=== PATIENT | female | born 1965 | race Caucasian/White ===

== ENCOUNTER → 2017-09-12 08:52 | Outpatient (POV) | payer OTHER, SELFPAY | PROVIDERS: PCP Family Medicine; Visit Provider Podiatrist | DX: Z00.00 Encounter for general adult medical examination without abnormal findings (principal) ==

== ENCOUNTER → 2017-10-10 08:57 | Outpatient (POV) | payer OTHER, SELFPAY | PROVIDERS: Visit Provider Podiatrist | DX: Z00.00 Encounter for general adult medical examination without abnormal findings (principal) ==

== ENCOUNTER → 2017-11-07 08:55 | Outpatient (POV) | payer OTHER, SELFPAY | PROVIDERS: Family Provider Family Medicine; PCP Family Medicine; Visit Provider Podiatrist | DX: Z00.00 Encounter for general adult medical examination without abnormal findings (principal) ==

== ENCOUNTER → 2017-11-25 09:04 | Outpatient (CLI) | payer OTHER, SELFPAY ==
--- NOTE | 2017-11-25 09:04 | XR_ITS ---
Left foot Weightbearing Foot 3 Views HISTORY: Foot pain ORDERING PHYSICIAN: Selina Olvera DPM PATIENT AGE: 52 years COMPARISON: None FINDINGS: There is mild hallux valgus with first metatarsophalangeal angle of 30 degrees with mild hypertrophic change of the distal aspect of the first metatarsal. No fracture or dislocation. No lytic or blastic change. IMPRESSION: Hallux valgus with bunion formation
--- NOTE | 2017-11-25 09:04 | XR_ITS ---
Right foot Weightbearing Foot 3 Views HISTORY: Foot pain ORDERING PHYSICIAN: Selina Olvera DPM PATIENT AGE: 52 years FINDINGS: There is mild hallux valgus with first metatarsophalangeal angle of 24 degrees. Mild osteoarthritic changes are present at the first metatarsophalangeal joint. No fracture or dislocation. Osteoarthritic changes are slightly worse then when compared to 03/29/2017 mild soft tissue swelling is present at the distal aspect of the first metatarsal along with mild bony hypertrophic changes. No fracture or other significant anomalies. 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
--- NOTE | 2017-11-25 09:04 | XR_ITS ---
XR ankle wt bearing RT min 3V CLINICAL INDICATION: Right ankle pain ORDERING PHYSICIAN: Selina Olvera DPM PATIENT AGE: 52 years COMPARISON: None FINDINGS: Weightbearing views are performed. No fracture or dislocation. No bony or joint abnormality. IMPRESSION: Negative right ankle
--- NOTE | 2017-11-25 09:04 | XR_ITS ---
XR ankle wt bearing LT min 3V HISTORY: Ankle pain ORDERING PHYSICIAN: Selina Olvera DPM PATIENT AGE: 52 years COMPARISON: None FINDINGS: There is a separate bony density at the tip of the medial malleolus consistent with an avulsion fracture which may be old. Please correlate clinically. No other significant anomalies are evident. The ankle mortise is well preserved and the talar dome has an unremarkable appearance. No soft tissue swelling IMPRESSION: Avulsion fracture of the tip of the medial malleolus with minimal lateral displacement age indeterminate otherwise negative
== END ==
PROVIDERS: Visit Provider Podiatrist
DX: M79.671 Pain in right foot (principal); M79.672 Pain in left foot; M79.673 Pain in unspecified foot
CPT/HCPCS: 73610; 73630

== ENCOUNTER → 2017-11-28 09:15 | Outpatient (POV) | payer OTHER, SELFPAY | PROVIDERS: Family Provider Family Medicine; PCP Family Medicine; Visit Provider Podiatrist | DX: Z00.00 Encounter for general adult medical examination without abnormal findings (principal) ==

== ENCOUNTER → 2017-12-12 10:16 | Outpatient (POV) | payer OTHER, SELFPAY | PROVIDERS: Visit Provider Podiatrist | DX: Z00.00 Encounter for general adult medical examination without abnormal findings (principal) ==

== ENCOUNTER → 2017-12-24 11:12 | Outpatient (CLI) | payer OTHER, SELFPAY ==
--- NOTE | 2017-12-24 11:20 | XR_ITS ---
XR knee LT 3V HISTORY: ITS.REASON: BILAT KNEE PAIN ORDERING PHYSICIAN: TIARA Mcmillan PATIENT AGE: 52 years COMPARISON: 01/21/2011 FINDINGS: There are minimal osteoarthritic changes with slight decrease in joint space medially and small osteophytes at the posterior patella and at the interspinous region of the proximal tibia. There is some minimal lateral subluxation of the tibia. No fracture or dislocation. No lytic or blastic change. IMPRESSION: Minimal osteoarthritic change of the left knee
--- NOTE | 2017-12-24 11:20 | XR_ITS ---
XR knee RT 3V HISTORY: ITS.REASON: BILAT KNEE PAIN ORDERING PHYSICIAN: TIARA Mcmillan PATIENT AGE: 52 years COMPARISON: FINDINGS: No fracture or dislocation. No lytic or blastic change. Normal mineralization. No significant arthritic changes evident. No other significant findings IMPRESSION: Negative right Knee
== END ==
PROVIDERS: PCP Family Medicine; Visit Provider Physician Assistant
DX: M25.561 Pain in right knee (principal); M25.562 Pain in left knee
CPT/HCPCS: 73562

== ENCOUNTER → 2018-02-06 10:00 | Outpatient (POV) | payer OTHER, SELFPAY | PROVIDERS: Visit Provider Podiatrist | DX: Z00.00 Encounter for general adult medical examination without abnormal findings (principal) ==

== ENCOUNTER → 2018-02-13 09:30 | Outpatient (CLI) | payer OTHER, SELFPAY ==
[2018-02-13 10:59] LABS: Alanine Aminotransferase 22 U/L (12-78); Albumin Level 3.5 gm/dL (3.4-5.0); Alkaline Phosphatase 101 U/L (46-116); Anion Gap 13.5 mEq/L (5-15); Aspartate Amino Transferase 17 U/L (15-37); Bilirubin,Total 0.4 mg/dL (0.2-1.0); Blood Urea Nitrogen 13 mg/dL (7-18); Calcium 8.5 mg/dL (8.5-10.1); Carbon Dioxide 25 mmol/L (21.0-32.0); Chloride 106 mmol/L (98-107); Chol/HDL Ratio 4.9 (1-3.5); Cholesterol 194 mg/dL (140-200); Creatinine,Serum 0.65 mg/dL (0.55-1.02); Estimated Glomerular Filt Rate 96 ml/min (>60); Free T4 (Free Thyroxine) 0.87 ng/dl (0.76-1.46); GFR (African American) 116 ML/MIN (>60); Globulin 3.4 gm/dl (1.3-3.2); Glucose 96 mg/dL (74-106); HDL Cholesterol 40 mg/dL (29-89); LDL Cholesterol 120 mg/dL (0-130); Potassium 4.5 mmoL/L (3.5-5.1); Sodium 140 mmol/L (136-145); Thyroid Stimulating Hormone 2.26 uIU/ml (0.358-3.740); Total Protein,Serum 6.9 gm/dL (6.4-8.2); Triglycerides 172 mg/dL (30-200); VLDL Cholesterol 34 mg/dL (0-40)
== END ==
PROVIDERS: Visit Provider Physician Assistant
DX: E03.9 Hypothyroidism, unspecified (principal); E78.2 Mixed hyperlipidemia
CPT/HCPCS: 36415; 80053; 80061; 84439; 84443

== ENCOUNTER → 2018-10-12 13:24 | Outpatient (POV) | payer OTHER, SELFPAY | PROVIDERS: Visit Provider Specialist | DX: M79.672 Pain in left foot (principal); M79.671 Pain in right foot | CPT/HCPCS: 95886; 95909 ==

== ENCOUNTER → 2018-10-28 14:29 | Outpatient (CLI) | payer OTHER, SELFPAY ==
--- NOTE | 2018-10-28 14:56 | XR_ITS ---
XR chest 2V HISTORY: ITS.REASON: SOB ORDERING PHYSICIAN: Alma Baker PATIENT AGE: 53 years COMPARISON: 17 FINDINGS: The cardiomediastinal silhouette and pulmonary vascularity are within normal limits. The lungs are clear without infiltrates, suspicious nodules, or pleural effusions. No acute bony abnormalities. IMPRESSION: Negative chest, no acute finding
== END ==
PROVIDERS: PCP Nurse Practitioner Family; Visit Provider Nurse Practitioner Family
DX: R06.02 Shortness of breath (principal)
CPT/HCPCS: 71046

== ENCOUNTER → 2018-11-13 15:42 | Outpatient (CLI) | payer OTHER, SELFPAY ==
--- NOTE | 2018-11-13 15:44 | US_ITS ---
US chest CLINICAL INDICATION: Palpable area along the medial aspect of the left clavicle. ITS.REASON: MASS OF CHEST WALL ORDERING PHYSICIAN: Alma Baker PATIENT AGE: 53 years Comparison: None FINDINGS: Ultrasound is performed of the region of the palpable abnormality. No cystic or solid lesions are identified. The palpable abnormality may represent the clavicular head and could be confirmed with CT if clinically desired. IMPRESSION: No solid or cystic lesions identified in the area of concern. The palpable abnormality may be due to the clavicular head and may be confirmed with CT
== END ==
PROVIDERS: PCP Family Medicine; Visit Provider Nurse Practitioner Family
DX: R22.2 Localized swelling, mass and lump, trunk (principal)
CPT/HCPCS: 76604

== ENCOUNTER → 2020-01-05 08:59 | Outpatient (CLI) | payer BC, SELFPAY ==
--- NOTE | 2020-01-05 09:07 | MM_ITS ---
PROCEDURE: MM DIG SCREENING MAMM BI W/CAD Digital Breast Tomosynthesis Included CLINICAL INDICATION: screening xmg There is no personal or family history of breast cancer. There has been a previous biopsy left breast for benign disease. COMPARISON: DIGMAMMDX MAMMOGRAM DX-OVERLOCK SLEEVE SETTER N/C from 11/01/2005 DMSB DIGITAL MAMM-SCREEN BILATERAL from 11/08/2011 DMSB DIG MAMM-SCREEN VINEET from 10/30/2015 TECHNIQUE: Standard CC and MLO images and 3D Tomosynthesis was obtained. R2 CAD reviewed. FINDINGS: Prominent diffuse fibroglandular densities are seen throughout both breasts. Again noted is the asymmetric area of glandular elements upper-outer quadrant left breast which probably was the biopsy site. Cristian images are helpful and there actually has been some interval improvement and or contraction of the biopsy scarring left breast when compared to previous studies. There is no new or suspicious lesion in either breast and no suspicious microcalcifications. IMPRESSION: Moderate breast density with stable post biopsy scarring left breast BI-RAD Category: 2 Benign Finding(s) FOLLOW-UP: 1YR 1 Year Follow-up (A letter has been sent to the patient regarding results of the study.) Dictated by: Dr. Juanjose Stewart MD 01/06/2020 11:[address] Juanjose Stewart MD in [place] 01/06/2020 11:17
== END ==
PROVIDERS: PCP Family Medicine; Visit Provider Nurse Practitioner Obstetrics & Gynecology
DX: Z12.31 Encounter for screening mammogram for malignant neoplasm of breast (principal)
CPT/HCPCS: 77063; 77067

== ENCOUNTER 2020-09-02 13:20 | Emergency (ER) | payer BC, SELFPAY ==
[2020-09-02 13:25] VITALS: BP 147/78; PULSE 87; RESP 16; TEMP 36.6; O2SAT 97; BMI 24.5
--- NOTE | 2020-09-02 13:44 | HMH.EDUTC ---
[facility] [place] Clinical Impression: Viral syndrome Sinusitis Qualifiers: Sinusitis location: unspecified location Chronicity: acute Recurrence: non-recurrent Qualified Code(s): J01.90 - Acute sinusitis, unspecified Disposition: Home, Self-Care Condition on Discharge: Good Instructions: DI for Sinusitis, Preventing the Spread of Coronavirus Discharge Instructions Additional Instructions: Drink plenty of fluids. Take tylenol for pain or fever. Return if you begin to have difficulty breathing. Follow up with your regular doctor. GO TO THE ER FOR ANY WORSENING SYMPTOMS Prescriptions: Azithromycin [Z-Gal 250mg Tab*] 250 mg PO UD DOSE PK #6 tab Transmission Status: Received by [facility] #[id number] Referrals: Melyssa Lira MD [Primary Care Provider] - Time of Disposition: 14:08 Medical Decision Making - Medical Records Medical records reviewed: No: I reviewed the patient's medical records. - Min Inquiry Pt receiving controlled substance: No Vital Signs: 09/02/20 13:25 09/02/20 14:10 Temperature 97.8 F 97.8 F Temperature Source Oral Pulse Rate 87 Pulse Rate [Right Brachial] 87 Respiratory Rate 16 16 Blood Pressure 147/78 H Blood Pressure [Right Arm] 147/78 H Blood Pressure Mean [Right Arm] 101 Blood Pressure Source [Right Arm] Automatic Cuff Blood Pressure Position [Right Arm] Sitting 02 Sat by Pulse Oximetry 97 Oxygen Delivery Method Room Air - Lab Data Lab Results 09/02/20 13:56: Strep Scn Rapid Clinic Negative Orders (Tests/Meds): ORDERS Category Date Time Status Strep Screen Confirmation Stat Micro 09/02/20 13:56 [place] [facility] [place] - General Stated complaint: congestion, cough, aches Time Seen by Provider: 09/02/20 13:44 - History of Present Illness Provider Complaint: She states that since yesterday, she has had a sore throat, sinus drainage, dry cough, and feeling bad. - Related Data Previous Rx's Medication Instructions Recorded estradiol 1 mg tablet 1 mg PO DAILY #90 tab 06/21/20 medroxyprogesterone 2.5 mg tablet 2.5 mg PO DAILY #30 tab 07/17/20 citalopram 20 mg tablet 20 mg PO DAILY #90 tab 08/14/20 Azithromycin [Z-Gal 250mg Tab*] 250 mg PO UD DOSE PK #6 tab 09/02/20 Allergies Allergy/AdvReac Type Severity Reaction Status Date / Time No Known Allergies Allergy Verified 08/14/20 16:11 [facility] History - Hepatitis A Screen Attestation statement:: This patient has been screened for Hepatitis A risk factors. I have reviewed the patient's past medical history: Yes Medical History: Reports:: Anxiety, Asthma, Depression, Gastroesophageal Reflux Disease(GERD), Heart Murmur, Hyperlipidemia Denies:: Chronic Obstructive Pulmonary Disease (COPD), Diabetes Mellitus Type 1, Diabetes Mellitus Type 2, Hypertension, Internal Pacemaker, Lung Disease, Seizures Other Medical History: Reports: Hypothyroidism. Denies: Arthritis Other Surgeries: Yes: Diagnostic Lap, Other (Left breast cyst removal). No: Pacemaker Amputation: No Fractures: Yes (right 3rd met stress fx) Comment: cyst removed from left breast, 1991 - Social History Smoking Status: Never smoker Alcohol Intake: never Alcohol Intake Frequency:: other Substance Use Type: denies use Occupational Status: employed - Psychiatric History Pschychiatric History:: Reports:: Anxiety, Depression Family Hx:: Cancer ROS Obtained: Yes All systems reviewed & no additional complaints - Constitutional Constitutional: Reports system reviewed and no additional complaints, except as docu - Eyes Eyes: Reports system reviewed and no additional complaints, except as docu - ENT Ears, Nose, Mouth, and Throat: Reports system reviewed and no additional complaints, except as docu - Cardiovascular Cardiovascular: Reports system reviewed and no additional complaints, except as docu - Respiratory Respiratory: Reports system reviewed and no additional complaints, except as docu
[2020-09-02 14:10] VITALS: BP 147/78; PULSE 87; RESP 16; TEMP 36.6; O2SAT 97
--- NOTE | 2020-09-02 17:46 | PC.NURSE ---
VOICEMAIL LEFT FOR PATIENT TO RETURN CALL
--- NOTE | 2020-09-02 17:49 | PC.NURSE ---
PATIENT NOTIFIED OF POSITIVE COVID RESULTS
[2020-09-02 19:01] LABS: UTC Strep Screen (Rapid) Negative (Negative)
== END 2020-09-02 14:13 | disposition home or self-care (01) ==
PROVIDERS: Emergency Provider Nurse Practitioner Family; PCP Family Medicine
DX: U07.1 COVID-19 (principal); J01.90 Acute sinusitis, unspecified; F41.8 Other specified anxiety disorders; K21.9 Gastro-esophageal reflux disease without esophagitis; E78.5 Hyperlipidemia, unspecified; E03.9 Hypothyroidism, unspecified; Z79.899 Other long term (current) drug therapy
CPT/HCPCS: 87880; 99202; G0463; U0003

== ENCOUNTER → 2021-04-06 09:48 | Outpatient (CLI) | payer BC, SELFPAY ==
--- NOTE | 2021-04-06 09:54 | XR_ITS ---
PROCEDURE: XR CHEST 2V CLINICAL HISTORY: SOB COMPARISON: CR CXR2V XR chest 2V from 10/28/2018 FINDINGS: The cardiomediastinal silhouette and pulmonary vascularity are within normal limits. The lungs are clear without infiltrates, suspicious nodules, or pleural effusions. No acute bony abnormalities. IMPRESSION: No acute findings. Dictated by: Darrick Magallanes MD 04/06/2021 11:18 Darrick Magallanes MD in [place] 04/06/2021 11:18
== END ==
LOC: RAD 09:49
PROVIDERS: PCP Physician Assistant; Visit Provider Physician Assistant
DX: R06.02 Shortness of breath (principal)
CPT/HCPCS: 71046

== ENCOUNTER → 2021-07-06 08:50 | Outpatient (CLI) | payer BC, SELFPAY ==
--- NOTE | 2021-07-06 08:50 | US_ITS ---
PROCEDURE: US TRANSVAGINAL CLINICAL INDICATION: post menopausal bleeding COMPARISON: No exams were available for comparison FINDINGS: UTERUS: 9cm x 5cmx 5cm with a combined endometrial thickness of 11.2mm there is an area somewhat heterogeneous echogenicity along the posterior and right lateral aspect of the body of the uterus measuring 4 x 3 cm consistent fibroid LEFT OVARY: [id number] with a volume of 1.2ml. RIGHT OVARY: [id number] with a volume of 1.8ml. No cul-de-sac fluid IMPRESSION: Mild endometrial thickening at 11 mm. 4 cm uterine fibroid Dictated by: Darrick Magallanes MD 07/06/2021 18:13 Darrick Magallanes MD in [place] 07/06/2021 18:13
== END ==
LOC: RAD 08:50
PROVIDERS: PCP Physician Assistant; Visit Provider Nurse Practitioner Obstetrics & Gynecology
DX: N95.0 Postmenopausal bleeding (principal)
CPT/HCPCS: 76830

== ENCOUNTER → 2021-10-12 07:56 | Outpatient (CLI) | payer BC, SELFPAY ==
--- NOTE | 2021-10-12 08:35 | PC.NURSE ---
PFT completed on Pt without incident. Albuterol 0.083% given via HHN per written protocol, Pt tolerated tx well.
--- NOTE | 2021-10-12 09:03 | XR_ITS ---
FINAL REPORT TECHNIQUE: Chest PA & Lateral CLINICAL HISTORY: ASTHMA,SOB x 3 months COMPARISON: April 06, 2021 FINDINGS: 2 views of the chest were performed. The heart size is normal. The mediastinum is within normal limits. There is no acute cardiopulmonary process. There are no pleural effusions. There is no pneumothorax. The bony thorax appears intact. IMPRESSION: No acute cardiopulmonary process. Reviewed, Interpreted and Dictated by Hernando Dias MD Transcribed by Jimmy Alvarado Authenticated by Hernando Dias MD on 10/12/2021 10:36:51 AM [facility]
== END ==
LOC: RT 07:59
PROVIDERS: PCP Physician Assistant; Visit Provider Family Medicine
DX: R06.02 Shortness of breath (principal); J45.909 Unspecified asthma, uncomplicated
CPT/HCPCS: 71046; 94060; 94726; 94729

== ENCOUNTER → 2022-08-12 17:02 | Outpatient (CLI) | payer BC, SELFPAY ==
[2022-08-12 18:16] LABS: Adenovirus,PCR Not Detected (NotDetected); Bordetella Pertussis Not Detected (NotDetected); Chlamydophila Pneumoniae, PCR Not Detected (NotDetected); Coronavirus 19, PCR Not Detected (NotDetected); Coronavirus 229E Not Detected (NotDetected); Coronavirus NL63 Not Detected (NotDetected); Coronovirus HKU1,PCR Not Detected (NotDetected); Human Metapneumovirus Not Detected (NotDetected); Influenza A, PCR Not Detected (NotDetected); Influenza AH1, 2009 Not Detected (NotDetected); Influenza AH1, PCR Not Detected (NotDetected); Influenza AH3,PCR Not Detected (NotDetected); Influenza B, PCR Not Detected (NotDetected); Mycoplasma Pneumoniae, PCR Not Detected (NotDetected); Parainfluenza 1, PCR Not Detected (NotDetected); Parainfluenza 2, PCR Not Detected (NotDetected); Parainfluenza 3, PCR Not Detected (NotDetected); Parainfluenza 4, PCR Not Detected (NotDetected); Respiratory Syncytial Virus Not Detected (NotDetected); Rhinovirus/Enterovirus Not Detected (NotDetected)
--- NOTE | 2022-08-12 18:25 | XR_ITS ---
PROCEDURE INFORMATION: Exam: XR Chest Exam date and time: 08/12/2022 6:39 PM Age: 57 years old Clinical indication: Shortness of breath TECHNIQUE: Imaging protocol: Radiologic exam of the chest. Views: 1 view. COMPARISON: CR XR CHEST 2V 10/12/2021 9:20 AM FINDINGS: Lungs: No consolidation. Pleural spaces: No pneumothorax. Heart/Mediastinum: No cardiomegaly. Bones/joints: No acute abnormality. IMPRESSION: No acute findings.
[2022-08-12 18:39] LABS: Basophils # 0.1 K/mm3 (0-0.2); Basophils % 1.4 % (0.1-2.0); Eosinophils # 0.4 K/mm3 (0.0-0.4); Eosinophils % 4.1 % (0.1-12.0); Hematocrit 39.6 % (37.0-47.0); Hemoglobin 12.9 g/dL (12.2-16.2); Lymphocytes # 2.7 K/mm3 (0.7-4.5); Lymphocytes % 32.1 % (10-50); Mean Corpuscular HGB Conc 32.6 g/dL (31.8-35.4); Mean Corpuscular Hemoglobin 31.2 pg (27.0-31.2); Mean Corpuscular Volume 95.7 fl (81-99); Mean Platelet Volume 8.7 fl (7.4-10.4); Monocytes # 0.4 K/mm3 (0.1-1.0); Monocytes % 4.9 % (1.7-9.3); Neutrophils # 4.9 K/mm3 (1.8-7.8); Neutrophils % 57.6 % (37.0-80.0); Platelet Count 356 K/mm3 (142-424); Red Blood Count 4.14 M/mm3 (4.20-5.40); Red Cell Distribution Width 12.8 % (11.5-17.5); White Blood Count 8.4 K/mm3 (4.8-10.8)
[2022-08-13 09:03] LABS: Coronavirus OC43 Detected (NotDetected)
== END ==
LOC: COVID.OUT 17:02
PROVIDERS: PCP Family Medicine; Visit Provider Family Medicine
DX: U07.1 COVID-19 (principal); J40 Bronchitis, not specified as acute or chronic
CPT/HCPCS: 36415; 71045; 85025; 87581; 87632; 87798; C9803; U0003; U0005

== ENCOUNTER → 2022-10-08 17:01 | Outpatient (CLI) | payer BC, SELFPAY ==
--- NOTE | 2022-10-08 | XR_ITS ---
PROCEDURE INFORMATION: Exam: XR Right Foot Exam date and time: 10/08/2022 5:06 PM Age: 57 years old Clinical indication: Pain; Foot; Right; Additional info: Foot pain TECHNIQUE: Imaging protocol: Radiologic exam of the right foot. Views: 3 or more views. COMPARISON: CR [id number] XR foot wt bearing RT 3V 11/25/2017 3:35 PM FINDINGS: Bones/joints: There are mild degenerative changes 1st MTP joint with accompanying hallux-valgus deformity. Remainder of the joint surfaces are unremarkable. There is no fracture, dislocation or underlying osseous lesion detected. Soft tissues: Normal. IMPRESSION: Mild degenerative changes 1st MTP joint. No acute bony abnormalities.
--- NOTE | 2022-10-08 | XR_ITS ---
PROCEDURE INFORMATION: Exam: XR Left Foot Exam date and time: 10/08/2022 5:08 PM Age: 57 years old Clinical indication: Left; Patient HX: Chronic foot pain, has worked on feet for years TECHNIQUE: Imaging protocol: Radiologic exam of the left foot. Views: 3 or more views. COMPARISON: CR [id number] XR foot wt bearing LT 3V 11/25/2017 3:35 PM FINDINGS: Bones/joints: There are mild degenerative changes 1st MTP joint with accompanying hallux-valgus deformity. There are spurs arising from the plantar posterior aspect of the calcaneus. Remainder of the joint surfaces are unremarkable. There is no fracture, dislocation or underlying osseous lesion detected. Soft tissues: Normal. IMPRESSION: No acute bony abnormalities.
== END ==
LOC: RAD 17:04
PROVIDERS: PCP Family Medicine; Visit Provider Family Medicine
DX: M79.671 Pain in right foot (principal); M79.672 Pain in left foot
CPT/HCPCS: 73630

== ENCOUNTER → 2023-01-03 16:13 | Outpatient (CLI) | payer BC, SELFPAY ==
--- NOTE | 2023-01-03 16:13 | MM_ITS ---
PROCEDURE INFORMATION: Exam: MG Bilateral Screening 3D Mammography Exam date and time: 01/03/2023 4:09 PM Age: 57 years old Clinical indication: Screening. No family history of breast cancer. History of left biopsy. TECHNIQUE: Imaging protocol: Bilateral Screening tomosynthesis and 2D mammography including computer-aided detection (CAD) when performed. COMPARISON: 1. MG MM DIG SCREENING MAMM BI W/CAD 01/05/2020 9:11 AM 2. MG DMSB DIG MAMM-SCREEN VINEET 10/30/2015 2:59 PM 3. MG DMSB DIGITAL MAMM-SCREEN BILATERAL 11/08/2011 3:41 PM 4. MG DIGMAMMDX MAMMOGRAM DX-TUG BOAT CAPTAIN N/C 11/01/2005 10:19 AM FINDINGS: MAMMOGRAPHY: Breast composition: The breasts are heterogeneously dense, which may obscure small masses. Mass: None. Architectural distortion: Architectural distortion in the left the outer breast, posterior 3rd, best seen in the craniocaudad projection. This is unchanged since 01/05/2020, considered related to the prior biopsy site. Calcifications: No suspicious calcifications. Asymmetric density: None. Skin thickening: None. Axillary adenopathy: None. IMPRESSION: See comments Stable architectural distortion in the outer left breast, correlate clinically to assure relation to known prior best biopsy site - if uncertain, patient can be recalled for additional diagnostic mammography with the skin linear scar marker placed and spot compression views added. If known post biopsy scar in the outer left breast, annual screening mammography recommended unless otherwise clinically indicated. ASSESSMENT: BI-RADS Category 2: Benign
== END ==
PROVIDERS: PCP Emergency Medicine; Visit Provider Nurse Practitioner Obstetrics & Gynecology
DX: Z12.31 Encounter for screening mammogram for malignant neoplasm of breast (principal)
CPT/HCPCS: 77063; 77067

== ENCOUNTER → 2023-07-02 08:41 | Outpatient (CLI) | payer BC, SELFPAY ==
--- NOTE | 2023-07-02 08:46 | CT_ITS ---
FINAL REPORT TECHNIQUE: After the administration of oral and intravenous contrast, axial images were obtained through the abdomen and pelvis by computed tomography. The study was performed with techniques to keep radiation dose as low as reasonably achievable, (ALARA). Individual dose reduction techniques using automated exposure control or adjustment of mA and/or kV according to the patient's size were employed. CLINICAL HISTORY: ABDOMINAL PAIN, diarrhea COMPARISON: None FINDINGS: Abdomen: The lung bases are clear. The liver parenchyma is homogeneous. The gallbladder is present. The spleen, pancreas, adrenals and kidneys appear unremarkable. The aorta is normal in caliber. There is no free fluid or adenopathy. A large amount of stool is present through the colon. Pelvis: The appendix is not identified. The urinary bladder is unremarkable. There is no free fluid or adenopathy. The uterus is anteverted, and there are multiple lobular masses present measuring up to 3.6 cm in size, consistent with uterine fibroids. IMPRESSION: Large stool burden in the colon. Multiple lobular masses present in the uterus, measuring up to 3.6 cm in size, consistent with uterine fibroids. Reviewed, Interpreted and Dictated by Hernando Dias MD Transcribed by Crhystal Corbin Authenticated and [facility]
== END ==
LOC: RAD 08:43
PROVIDERS: PCP Family Medicine; Visit Provider Nurse Practitioner Family
DX: R10.9 Unspecified abdominal pain (principal)
CPT/HCPCS: 74177; Q9967

== ENCOUNTER 2023-09-07 10:11 | Emergency (ER) | payer BC, SELFPAY ==
[2023-09-07] VITALS (9 sets, daily range): BP systolic 125–160; BP diastolic 58–81; PULSE 60–69; RESP 15–16; TEMP 36.5–36.9; O2SAT 94–100; BMI 23.7
--- NOTE | 2023-09-07 10:16 | PC.NURSE ---
Dr. Byrd at [facility] for pt eval
--- NOTE | 2023-09-07 10:17 | ECG_ITS ---
APPROVED REPORT Exam: Resting ECG HR:65 bpm ECG Measurements Heart Rate 65 AXES RI 180 P 70 QRSd 92 QRS 68 QT 396 T 62 QTc 408 Conclusion SINUS RHYTHM LOW QRS VOLTAGE IN PRECORDIAL LEADS [QRS DEFLECTION < 1.0 mV IN CHEST LEADS] BORDERLINE ECG UNCONFIRMED REPORT Electronically signed by : Toni Briggs MD 09/08/2023 17:30:12
--- NOTE | 2023-09-07 10:21 | CT_ITS ---
PROCEDURE INFORMATION: Exam: CT Abdomen And Pelvis With Contrast Exam date and time: 09/07/2023 10:47 AM Age: 58 years old Clinical indication: Nausea and vomiting; Additional info: N/v. Gastritis TECHNIQUE: Imaging protocol: Computed tomography of the abdomen and pelvis with contrast. Total images: 296 Radiation optimization: All CT scans at this facility use at least one of these dose optimization techniques: automated exposure control; mA and/or kV adjustment per patient size (includes targeted exams where dose is matched to clinical indication); or iterative reconstruction. Contrast material: ISOVUE; Contrast volume: 75 ml; Contrast route: IV; COMPARISON: CT ABDOMEN PELVIS W CON 07/02/2023 9:24 AM FINDINGS: Diaphragm: Small hiatal hernia. Liver: Normal. No mass. Gallbladder and bile ducts: Normal. No calcified stones. No ductal dilation. Pancreas: Normal. No ductal dilation. Spleen: Normal. No splenomegaly. Adrenal glands: Normal. No mass. Kidneys and ureters: Normal. No hydronephrosis. Stomach and bowel: Mild thickening of the fox of the stomach consistent with gastritis. Appendix: No evidence of appendicitis. Intraperitoneal space: Normal. No significant fluid collection. Vasculature: Mild atherosclerotic disease. Lymph nodes: Unremarkable. No enlarged lymph nodes. Urinary bladder: Unremarkable as visualized. Reproductive: Heterogeneous appearance of the uterus with multiple intrauterine masses present measuring up to 3.4 cm. Findings are most likely related to intrauterine fibroids. Bones/joints: The lumbar spine demonstrates mild degenerative changes at multiple levels. Soft tissues: 1.3 cm irregular density noted within the right breast. This is partially imaged. Follow-up imaging with mammography is recommended. IMPRESSION: 1. Mild thickening of the fox of the stomach consistent with gastritis. 2. Small hiatal hernia. 3. Heterogeneous appearance of the uterus with multiple intrauterine masses present measuring up to 3.4 cm. Findings are most likely related to intrauterine fibroids. 4. 1.3 cm irregular density noted within the right breast. This is partially imaged. Follow-up imaging with mammography is recommended.
--- NOTE | 2023-09-07 10:21 | XR_ITS ---
PROCEDURE INFORMATION: Exam: XR Chest Exam date and time: 09/07/2023 10:27 AM Age: 58 years old Clinical indication: Other: Nausea & vomiting; Additional info: N/v acs workup TECHNIQUE: Imaging protocol: Radiologic exam of the chest. Views: 1 view. Total images: 1 COMPARISON: CR XR CHEST PORTABLE 08/12/2022 6:39 PM FINDINGS: Lungs: Unremarkable. No consolidation. Pleural spaces: Unremarkable. No pleural effusion. No pneumothorax. Heart/Mediastinum: Unremarkable. No cardiomegaly. Bones/joints: Unremarkable. IMPRESSION: No acute findings.
--- NOTE | 2023-09-07 10:23 | HMH.EDGENADL ---
Discharge Plan Disposition Patient Disposition: Home, Self-Care Condition: Fair Prescriptions Prescriptions: New ondansetron 4 mg tablet,disintegrating 4 mg PO Q6H PRN (Reason: nausea and vomiting) Qty: 10 0RF No Action atorvastatin 20 mg tablet 20 mg PO DAILY citalopram 40 mg tablet 40 mg PO DAILY cholecalciferol (vitamin D3) [D3-2000] 50 mcg (2,000 unit) capsule 50 mcg PO DAILY Patient Comments: TAKE 2 CAPSULES BY MOUTH DAILY omeprazole 40 mg capsule,delayed release(DR/EC) 40 mg PO DAILY Patient Comments: TAKE 1 CAPSULE BY MOUTH EVERY DAY estradiol 1 mg tablet 1 mg PO DAILY Qty: 90 3RF medroxyprogesterone 5 mg tablet 5 mg PO DAILY Qty: 90 3RF Referrals Follow up/Referrals: Melyssa Lira MD [Primary Care Provider] - See instructions Activity Restrictions/Add. Instructions Additional Instructions/Restrictions: You were evaluated in the ER for abdominal pain, vomiting, lightheadedness. You are appropriate for discharge at this time. Take the prescribed Zofran if needed for nausea and vomiting. Drink plenty of water. Make an appointment with your primary care physician for reevaluation in 2 to 3 days. Return to the ER with new, worsening, or otherwise concerning symptoms. Clinical Impressions Clinical Impression: Vomiting Stand Alone Forms Stand Alone Forms: Work/School Release Instructions Patient Instructions: DI for Diarrhea and Traveler's Diarrhea -- Adult, DI for Diarrhea and Traveler's Diarrhea -- Child, DI for Nausea -- Adult, DI for Nausea -- Child Discharge ED Provider: Aleah Byrd General Adult HPI General Chief complaint: Nausea/Vomiting/Diarrhea Stated complaint: dizzy, vomiting Time Seen by Provider: 09/07/23 10:13 History of Present Illness HPI narrative: This 58-year-old female presents to the ER with concerns of vomiting and lightheadedness. Patient states she woke up not feeling well this morning. She states she ate breakfast and was sitting with her grandson when she got a hot feeling all over and then had emesis. She denies any coffee grounds, bloody, or bilious emesis. No diarrhea. No abdominal pain. Patient states she felt lightheaded before and after vomiting. She states she still feels funny . She denies any numbness, tingling, or weakness. She denies any room spinning sensation. She is able to walk. She has not had syncope, she denies chest pain or shortness of breath, no dysuria. No fevers. Patient's only current daily medication is Celexa. Related Data Home Medications Medication Instructions Recorded Confirmed atorvastatin 20 mg tablet 20 mg PO DAILY 06/18/21 09/07/23 cholecalciferol (vitamin D3) 50 50 mcg PO DAILY 06/18/21 09/07/23 mcg (2,000 unit) capsule (D3-2000) citalopram 40 mg tablet 40 mg PO DAILY 06/18/21 09/07/23 omeprazole 40 mg capsule,delayed 40 mg PO DAILY 12/30/22 09/07/23 release Previous Rx's Medication Instructions Recorded estradiol 1 mg tablet 1 mg PO DAILY #90 tabs 06/17/23 medroxyprogesterone 5 mg tablet 5 mg PO DAILY #90 tabs 06/17/23 ondansetron 4 mg disintegrating 4 mg PO Q6H PRN nausea and 09/07/23 tablet vomiting #10 tabs Allergies Allergy/AdvReac Type Severity Reaction Status Date / Time No Known Allergies Allergy Verified 12/30/22 14:41 [facility] Disclaimer: The information contained in this section may have been updated after the patient was seen, as this information can be updated by other users. Medical History (Updated 09/07/23 @ 12:58 by Aleah Byrd MD) Chronic pain Metatarsalgia of both feet Surgical History (Updated 12/30/22 @ 14:48 by ANTHONY Martinez) History of lumpectomy History of surgery Family History (Updated 12/30/22 @ 14:47 by ANTHONY Martinez) Mother Cancer Social History Smoking Status: Never smoker alcohol intake: never substance use type: denies use current occupational status: other Travel in the last 8 weeks: None caffeine: No ROS Obtained: Yes All systems reviewed & no additional complaints except as documented Constitutional Constitutional: Denies chills, Denies fever(s), Denies headache(s) and Reports weakness (Generalized) Eyes Eyes: Denies change in vision ENT Ears, Nose, Mouth, and Throat: Reports dizziness (Described as lightheadedness), Denies headache(s), Denies nasal congestion and Denies sore throat Cardiovascular Cardiovascular: Denies chest pain, Denies dyspnea and Denies leg edema Respiratory Respiratory: Denies cough and Denies dyspnea Gastrointestinal Gastrointestingal: Reports nausea and vomiting; Denies abdominal pain, constipation or diarrhea Genitourinary Female Genitourinary: Denies dysuria Musculoskeletal Musculoskeletal: Denies arthralgias, Denies myalgias, Denies numbness and Denies tingling Integumentary/Breasts Skin/Breast: Denies change in pigmentation Neurologic Neurologic: Reports dizziness (Described as lightheadedness), Denies headache(s), Denies numbness, Denies tingling and Reports weakness (Generalized) Physical Exam General General appearance: alert and in no apparent distress Head Head exam: atraumatic and normocephalic Eye Eye exam: Present PERRL and EOMI ENT ENT exam: Present mucous membranes moist Neck Neck exam: Present normal inspection and full ROM Chest Chest inspection: Present symmetric chest wall rise Respiratory Respiratory exam: Absent respiratory distress or stridor Cardiovascular Cardiovascular exam: Present regular rate and normal rhythm Abdominal Exam Abdominal exam: Present soft; Absent distention, tenderness, guarding or rebound Extremities Exam Extremities exam: Present full ROM Neurological Exam Neurological exam: Present alert, oriented X3, CN II-XII intact, normal gait and other (Normal finger-nose, normal [id number], no nystagmus); Absent motor sensory deficit Psychiatric Psychiatric exam: Present normal affect and normal mood Skin Skin exam: Present warm and dry Medical Decision Making Min Inquiry Pt receiving controlled substance: No Vital Signs: 09/07/23 10:12 09/07/23 10:19 09/07/23 10:21 Temperature 97.7 F Temperature Source Oral Pulse Rate 67 67 Pulse Rate [Left Radial] 66 Respiratory Rate 15 Blood Pressure 160/75 H 148/77 H Blood Pressure [Right Arm] 148/77 H Blood Pressure Mean 105 115 Blood Pressure Mean [Right Arm] 100 Blood Pressure Source Blood Pressure Position 02 Sat by Pulse Oximetry 98 98 98 Oxygen Delivery Method Room Air Room Air Room Air 09/07/23 10:30 09/07/23 11:30 09/07/23 12:01 Temperature Temperature Source Pulse Rate 60 65 62 Pulse Rate [Left Radial] Respiratory Rate 16 16 Blood Pressure 140/81 155/76 H 160/81 H Blood Pressure [Right Arm] Blood Pressure Mean 111 120 127 Blood Pressure Mean [Right Arm] Blood Pressure Source Blood Pressure Position 02 Sat by Pulse Oximetry 99 100 100 Oxygen Delivery Method Room Air 09/07/23 12:31 09/07/23 13:48 09/07/23 13:00 Temperature 98.5 F Temperature Source Oral Pulse Rate 64 69 63 Pulse Rate [Left Radial] Respiratory Rate 16 16 Blood Pressure 126/58 L 125/60 140/67 Blood Pressure [Right Arm] Blood Pressure Mean 107 118 Blood Pressure Mean [Right Arm] Blood Pressure Source Automatic Cuff Blood Pressure Position Sitting 02 Sat by Pulse Oximetry 99 94 L Oxygen Delivery Method Room Air Room Air Lab Data Lab Results 09/07/23 10:21: WBC 4.6 L, RBC 4.13 L, Hgb 12.9, Hct 38.8, MCV 94.0, MCH 31.1, MCHC 33.1, RDW 12.7, Plt Count 249, MPV 8.3, Neut % (Auto) 52.7, Lymph % (Auto) 37.4, Wilson % (Auto) 5.8, Eos % (Auto) 3.0, Baso % (Auto) 1.0, Neut # (Auto) 2.4, Lymph # (Auto) 1.7, Wilson # (Auto) 0.3, Eos # (Auto) 0.1, Baso # (Auto) 0.1, Sodium 140, Potassium 3.9, Chloride 105, Carbon Dioxide 29, Anion Gap 9.9, BUN 18 H, Creatinine 0.70, Estimated Creat Clear 85, Estimated GFR 86, Est GFR ( Amer) 104, Glucose 85, Calcium 8.8, Total Bilirubin 0.5, AST 42 H, ALT 37, Alkaline Phosphatase 83, Troponin I < 0.01, Total Protein 6.7, Albumin 3.9, Globulin 2.8, Albumin/Globulin Ratio 1.4 09/07/23 10:51: Lactate 1.2, Urine Color Yellow, Urine Appearance Clear, Urine pH 7.5, Ur Specific [place] 1.020, Urine Protein Negative, Urine Glucose (UA) Negative, Urine Ketones Negative, Urine Blood 2+, Urine Nitrate Negative, Urine Bilirubin Negative, Urine Urobilinogen 0.2, Ur Leukocyte Esterase Negative, Urine RBC 10-20, Urine WBC Occasional, Ur Squamous Epith Cells 3-5, Urine Bacteria None 01/21/24 13:00: Troponin I < 0.01 09/07/23 10:21 09/07/23 10:21 Orders (Tests/Meds): ED MEDICATIONS Discontinued Medications Generic Name Dose Route Start Last Admin Trade Name Freq PRN Reason Stop Dose Admin Belladonna Alkaloids 60 ml 09/07/23 12:16 09/07/23 12:23 Belladonna Alkaloids 60 Ml Ml PO 09/07/23 12:17 60 ml ONCE ONE Administration Lactated Ringer's 1,000 mls @ 999 mls/hr 09/07/23 10:21 09/07/23 10:27 Lactated Ringer's 1000 Ml Bag IV 09/07/23 11:21 999 mls/hr .Q1H1M ONE Administration Iopamidol 75 ml 09/07/23 11:05 09/07/23 11:06 Iopamidol-370 (76%);100ml Bottle IV 09/07/23 11:06 75 ml ONCE ONE Administration Ondansetron HCl 4 mg 09/07/23 10:21 09/07/23 10:27 Ondansetron 4mg/2ml Vial IV 09/07/23 10:22 4 mg ONCE ONE Administration Sodium Chloride 10 ml 09/07/23 11:05 09/07/23 11:06 Sodium Chloride 0.9% 10ml Syr (Rad Only) IV 10/07/23 11:04 10 ml NEEDED PRN Administration Maintain IV Site ORDERS Category Date Time Status CT abdomen pelvis w con Stat Cat Scan 09/07/23 10:21 Completed CXR --portable [XR chest portable] Stat Exams 09/07/23 10:21 Completed CBC w/Auto Diff [Complete Blood Count Auto Diff] Stat Lab 09/07/23 10:21 Completed CMP [Comprehensive Metabolic Panel] Stat Lab 09/07/23 10:21 Completed Lactic Acid Stat Lab 09/07/23 10:51 Completed POC Glucose,Bedside Stat Lab 09/07/23 10:21 Ordered Troponin I Q3H Lab 09/07/23 13:00 Completed Troponin I Stat Lab 09/07/23 10:21 Completed Urinalysis and Microscopic Stat Lab 09/07/23 10:51 Completed ECG initial Besson Routine Y 09/07/23 10:17 Completed Medical Decision Narrative: In summary, this 58year old female presents to the emergency department today with nausea, vomiting, lightheadedness. On initial evaluation patient is hemodynamically stable, afebrile, abdominal exam is benign, cardiopulmonary exam reassuring, patient does not have any abnormalities on neurologic exam, no nystagmus, dizziness cannot be provoked by head movements. Differential diagnosis includes but is not limited to ACS, viral syndrome, electrolyte abnormality, dehydration, bowel obstruction, urinary tract infection, I considered posterior stroke initially because patient had stated she had dizziness however I did not find any deficits on neurologic exam and she is describing lightheadedness more than dizziness, and I do not believe she requires further stroke workup at this time. Based on these concerns, I ordered cardiac workup, imaging, and labs. Patient is also receiving IV fluids and Zofran. ECG personally interpreted demonstrates normal sinus rhythm, rate 65, normal axis, normal intervals, no STEMI. Labs personally reviewed demonstrate mild leukopenia with WBC 4.6, nonspecific and nonactionable, no anemia, CMP with normal sodium, potassium, chloride, BUN 18, creatinine 0.7, patient is receiving IV fluids, initial troponin undetectably low at less than 0.01, repeat troponin also undetectably low, no delta. UA negative for signs of infection. XR personally interpreted demonstrates no acute infiltrate, pneumothorax, or other intrathoracic abnormality. See radiology read for full interpretation. CT imaging personally interpreted demonstrate no finding of bowel obstruction, hiatal hernia present. Radiology read mentions thickening of the stomach, possible gastritis, uterine fibroids, and irregular nodule in the right breast. Patient was made aware of incidental findings. See radiology read for full interpretation On reassessment patient has tolerated oral intake and her symptoms are significantly improved. She states she no longer feels lightheaded. She has GI specialist in [place] with Dr. Barbosa. I instructed her to make an appointment with them as well as to follow-up with her primary care physician. I prescribed Zofran. Patient was given instructions on symptomatic management, follow up instructions, and return precautions for the emergency department. Patient indicated understanding and was discharged in stable condition. Critical Care Critical Care Time Critical Care Time: No
[2023-09-07] MEDS: ONDANSETRON 4MG/2ML VIAL 4 MG IV (10:27)
[2023-09-07] MEDS: LACTATED RINGERS 1000ML 1,000 ML 999 ML IV (10:27)
[2023-09-07 10:34] LABS: Basophils # 0.1 K/mm3 (0-0.2); Eosinophils # 0.1 K/mm3 (0.0-0.4); Hematocrit 38.8 % (37.0-47.0); Hemoglobin 12.9 g/dL (12.2-16.2); Lymphocytes # 1.7 K/mm3 (0.7-4.5); Lymphocytes % 37.4 % (10-50); Mean Corpuscular HGB Conc 33.1 g/dL (31.8-35.4); Mean Corpuscular Hemoglobin 31.1 pg (27.0-31.2); Mean Platelet Volume 8.3 fl (7.4-10.4); Monocytes # 0.3 K/mm3 (0.1-1.0); Monocytes % 5.8 % (1.7-9.3); Neutrophils # 2.4 K/mm3 (1.8-7.8); Neutrophils % 52.7 % (37.0-80.0); Platelet Count 249 K/mm3 (142-424); Red Blood Count 4.13 M/mm3 (4.20-5.40); Red Cell Distribution Width 12.7 % (11.5-17.5); White Blood Count 4.6 K/mm3 (4.8-10.8)
--- NOTE | 2023-09-07 10:35 | PC.NURSE ---
RAD at BS
[2023-09-07 10:40] LABS: Chloride 105 mmol/L (98-107); Sodium 140 mmol/L (136-145)
[2023-09-07 10:41] LABS: Potassium 3.9 mmoL/L (3.5-5.1)
[2023-09-07 10:43] LABS: Alanine Aminotransferase 37 U/L (12-78); Alkaline Phosphatase 83 U/L (38-126); Aspartate Amino Transferase 42 U/L (14-36); Bilirubin,Total 0.5 mg/dl (0.2-1.3); Blood Urea Nitrogen 18 mg/dl (7-17); Creatinine Clearance Estimated 85 mL/min (50-200); Estimated Glomerular Filt Rate 86 ml/min (>60); GFR (African American) 104 ML/MIN (>60)
[2023-09-07 10:44] LABS: Albumin Level 3.9 g/dl (3.5-5.0); Albumin/Globulin Ratio 1.4 (1.1-1.8); Anion Gap 9.9 mEq/L (5-15); Calcium 8.8 mg/dl (8.4-10.2); Carbon Dioxide 29 mmol/L (22.0-30.0); Globulin 2.8 g/dL (1.3-3.2); Glucose 85 mg/dl (74-100); Total Protein,Serum 6.7 g/dl (6.3-8.2)
--- NOTE | 2023-09-07 10:53 | PC.NURSE ---
Pt gone to CT via stretcher
[2023-09-07 10:57] LABS: Appearance,Urine CLEAR (Clear); Bilirubin,Urine Negative (Negative); Blood, Urine 2+ (Negative); Color,Urine YELLOW (Yellow); Glucose,Urine (UA) Negative (Negative); Ketones,Urine Negative (Negative); Leukocyte Esterase,Urine Negative (Negative); Microscopic, Urine URINE MICROSCOPIC (MICROSCOPIC); Nitrate,Urine Negative (Negative); PH,Urine 7.5 (5.0-8.5); Protein,Urine Negative (Negative); Urobilinogen,Urine 0.2 EU/dl (0.2)
[2023-09-07 11:02] LABS: Troponin I < 0.01 ng/ml (0.00-0.034)
[2023-09-07] MEDS: IOPAMIDOL-370 (76%);100ML BOTTLE 75 ML IV (11:06)
[2023-09-07] MEDS: SODIUM CHLORIDE 0.9% 10ML SYR (RAD ONLY) 10 ML IV (11:06)
[2023-09-07 11:12] LABS: Lactic Acid 1.2 mmol/L (0.7-2.1); WBC,Urine Occasional #/hpf (0-3)
[2023-09-07] MEDS: BELLADONNA ALKALOIDS 60 ML ML PO (12:23)
[2023-09-07 13:29] LABS: Troponin I < 0.01 ng/ml (0.00-0.034)
== END 2023-09-07 13:51 | disposition home or self-care (01) ==
PROVIDERS: Emergency Provider Emergency Medicine; PCP Family Medicine
DX: R42 Dizziness and giddiness (principal); R11.2 Nausea with vomiting, unspecified
CPT/HCPCS: 71045; 74177; 80053; 81001; 83605; 84484; 85025; 93005; 96361; 96374; 99285; J2405; Q9967

== ENCOUNTER 2023-09-26 17:03 | Outpatient (CLI) | payer BC, SELFPAY ==
[2023-10-06 09:58] LABS: Nicotine <1.0
[2023-10-06 09:59] LABS: Cotinine <1.0
== END 2023-09-26 23:59 | disposition home or self-care (01) ==
PROVIDERS: PCP Family Medicine; Visit Provider Family Medicine
DX: Z02.83 Encounter for blood-alcohol and blood-drug test (principal)
CPT/HCPCS: 36415; 80323

== ENCOUNTER 2023-10-08 10:05 | Outpatient (CLI) | payer BC, SELFPAY ==
[2023-10-08 12:51] LABS: Vitamin B12 500 pg/mL (239-931)
== END 2023-10-08 23:59 ==
LOC: LAB 10:06
PROVIDERS: PCP Family Medicine; Visit Provider Specialist
DX: G62.89 Other specified polyneuropathies (principal); Q66.71 Congenital pes cavus, right foot; Q66.72 Congenital pes cavus, left foot
CPT/HCPCS: 36415; 82607; 82746

== ENCOUNTER 2024-03-05 13:48 | Outpatient (CLI) | payer BC, SELFPAY ==
--- NOTE | 2024-03-05 13:49 | US_ITS ---
FINAL REPORT CLINICAL HISTORY: eval for Guillory Neuroma, right foot pain COMPARISON: None FINDINGS: Limited sonographic images were obtained of the soft tissues of the right foot at the region of interest. There is no evidence of cystic or soft tissue mass identified. IMPRESSION: No discrete lesion. If symptoms persist, MRI with contrast may be considered as a more sensitive study. Reviewed, Interpreted and Dictated by Melyssa Luther MD Transcribed by Marli Toure Authenticated and [facility]
== END 2024-03-05 23:59 | disposition home or self-care (01) ==
LOC: RAD 13:49
PROVIDERS: PCP Family Medicine; Visit Provider Specialist
DX: G57.61 Lesion of plantar nerve, right lower limb (principal); G62.9 Polyneuropathy, unspecified; Q66.71 Congenital pes cavus, right foot; Q66.72 Congenital pes cavus, left foot; G89.29 Other chronic pain
CPT/HCPCS: 76882

== ENCOUNTER 2024-09-01 16:12 | Outpatient (CLI) | payer BC, SELFPAY ==
--- NOTE | 2024-09-01 16:16 | XR_ITS ---
FINAL REPORT TECHNIQUE: 5 views CLINICAL HISTORY: PARESTHESIA FINDINGS: There is no fracture present. There is mild retrolisthesis of C4 on 5. Moderate degenerative disc disease is noted with mild facet arthropathy. There is probable bony neuroforaminal narrowing at C4-5, C5-6, and C6-7 bilaterally. IMPRESSION: Moderate diffuse degenerative changes. MRI follow-up may be helpful. Reviewed, Interpreted and Dictated by Melyssa Luther MD Transcribed by Alma Saldaña Authenticated and [facility]
== END 2024-09-01 23:59 | disposition home or self-care (01) ==
LOC: RAD 16:13
PROVIDERS: PCP Physician Assistant; Visit Provider Physician Assistant
DX: R20.2 Paresthesia of skin (principal)
CPT/HCPCS: 72050

== ENCOUNTER 2024-09-15 15:52 | Outpatient (RCR) | payer BC, SELFPAY ==
--- NOTE | 2024-09-15 17:26 | HMH.PTOPEV ---
PT Outpatient Evaluation Rehab PT Outpatient Evaluation Start: 09/15/24 15:57 Freq: Status: Active Protocol: Document 09/15/24 15:57 KEMAR (Rec: 09/15/24 17:26 KEMAR [id number]) E-signed By Roshni Peterson, PT Outpatient Therapy Subjective History Subjective History Pt is a 59 y/o female who reports insidious onset of neck pain ~2 months ago. Pt reports left-sided neck pain and tightness of the left upper trapezius. Pt denies headaches, distal UE symptoms, or paresthesia. Pt reports pain is aggravated by looking down, looking over her shoulder especially to the left, and with work activities . Pt reports difficulty sleeping with inability to get comfortable due to left-sided neck pain. Pt had a cervical spine xray on 09/01/24 with impression of There is no fracture present. There is mild retrolisthesis of C4 on 5 . Moderate degenerative disc disease is noted with mild facet arthropathy. There is probable bony neuroforaminal narrowing at C4-5, C5-6, and C6-7 bilaterally. Pt reports she was prescribed Meloxicam and a muscle relaxer she states she has been taking as prescribed with little improvement in symptoms noted. Occupation: Housekeeping at [employer] Medical History: Depression, Allergic Rhinitis, Systolic Heart Murmur Special tests: - flexion rotation test New diagnosis of cancer in past 12 No months? Chief Complaint Pain,Stiff Symptom Type Ache,Dull Symptoms Relieved By Heat,Ice Symptoms Aggravated By Physical Activity Current Functional Limitations Lifting,Housework,Desk Work/ Reading,Driving,Sleeping Symptom Description Constant but Variable Level of pain today (0-10) 5 Pain scale - at its best (0-10) 4 Pain scale - at its worst (0-10) 7 Cervical Eval Palpation Cervical Muscles L Cervical Paraspinal,R Upper Trapezius,L Upper Trapezius Cervical/Thoracic Palpation Findings Spasm Flexibility Deficits Upper Trapezius Muscle Length (R) Mild Tightness,(L) Moderate Tightness Levaetor Scapulae Muscle Length (R) Mild Tightness,(L) Moderate Tightness Pectoralis Major Muscle Length (R) Mild Tightness,(L) Mild Tightness Pectoralis Minor Muscle Length (R) Mild Tightness,(L) Mild Tightness Passive Joint Mobility Cervical PIVM Dec: R C4/5 L C4/5 R C5/6 L C5/6 R C6/7 L C6/7 R C7/T1 L C7/T1 AROM Cervical Spine Extension Active Range of 30 p! Motion (degrees) Cervical Spine Flexion Active Range of 45 p! Motion (degrees) Cervical Spine Right Lateral Flexion 45 Active Range of Motion (degrees) Cervical Spine Left Lateral Flexion 40 p! Active Range of Motion (degrees) Cervical Spine Right Rotation Active 55 Range of Motion (degrees) Cervical Spine Left Rotation Active 55 Range of Motion (degrees) Altered Sensation Bilateral Comment equal and intact to light touch sensation Special Test C-Spine Foraminal Compression (Spurling) Negative Left,Negative Right Test C-spine Verterbral Accessory Movements Central [place] that Elicit Symptoms C-Spine Compression Test Negative Left,Negative Right Shoulder/Elbow Eval Shoulder Objective Measurements Shoulder MMT Bilateral Lower Trapezius Strength Grade 4- Good- Middle Trapezius Strength Grade 4- Good- Serratus Anterior Strength Grade 4 Good Upper Trapezius/Levator Scapulae 4 Good Elbow Objective Measurements Neck Disability Index Neck Disability Index Section 1: Pain Intensity The pain is fairly severe at the moment Section 2: Personal Care (washing, It is painful to look after dressing, etc.) myself and I am slow and careful Section 3: Lifting I can lift heavy weights without extra pain Section 4: Reading I can read as much as I want with moderate pain in my neck Section 5: Headaches I have moderate headaches, which come infrequently Section 6: Concentration I can concentrate fully when I want to with slight difficulty Section 7: Work I can do most of my usual work , but no more Section 8: Driving I can drive my car as long as I want with moderate pain in my neck Section 9: Sleeping My sleep is moderately disturbed (2-3 hrs. sleepless) Section 10: Recreation I am able to engage in a few of my usual recreation activities because NDI Score 20 Outpatient Therapy Assessment Impairments Problems/Impairmments Palpation Tenderness,Impaired Range of Motion,Impaired Strength,Impaired Lifting, Impaired Household Care, Impaired Work Activities, Impaired Desk/Computer Activities,Subjective C/O Pain ,Impaired Self Care/Self Management Prognosis Rehab Potential Good Clinical Impression Consistent with Diagnosis Yes Short Term Goals Number of Weeks 3 Improve Tolerance to Work Activities Yes: report ability to work half a shift with pain 5/10 or less Decrease Subjective C/O Pain Yes: Improve pain at worst to 5/10 to improve overall QOL Improve Self Care/Self Management Yes Patient to be Ind w/ HEP Yes Pet Care Technician Goals Number of Weeks 6 Decreased Palpation Tenderness Yes: 0-1/4 TTP of L cervical mm Increase Range of Motion Yes: Improve cervical AROM ext to 40-45, LF to 45, Rot to 60 -70 Increase Strength Yes: Improve scapular strength to 4-4+/5 grosly to assist with function/posture Improve Tolerance to Work Activities Yes: report ability to work a full shift with pain 3/10 or less Improve Neck Disability Index Score Yes: Improve score to 15 or less to improve overall QOL Decrease Subjective C/O Pain Yes: Improve pain at worst to 3/10 to improve overall QOL Outpatient Therapy Plan of Care Treatment Plan May Include Therapeutic Exercise Including Home Yes Exercise Program Manual Therapy Techniques Yes Neuromuscular Re-education Yes Therapeutic Activities to Return to Yes Previous Functional/Work Level ADL/Self Care Education Yes Dry Needling Yes Thermal Modalities Yes Electrical Stimulation Yes Ultrasound/Phonophoresis Yes Iontophoresis Yes Eval/Re-Eval Yes Frequency Times per week 2 Duration Number of Weeks 4-6 Addendums This patient is a candidate for social No or vocational rehab? Patient/Guardian verbally acknowledges Yes understanding of treatment program and consents to further treatment? Patient/Guardian verbally acknowledges Yes understanding of diagnosis, prognosis and goals for treatment? Eval Complexity PT Charges 43082 - Low Complexity PHYSICIAN CERTIFICATION: I certify the specified therapy services for Marizol Navarro are required, authorized, and reviewed every 30 days.
== END 2024-09-15 23:59 | disposition home or self-care (01) ==
LOC: PT 15:52
PROVIDERS: PCP Physician Assistant; Visit Provider Physician Assistant
DX: M62.838 Other muscle spasm (principal)
CPT/HCPCS: 97163

== ENCOUNTER 2024-10-14 17:00 | Outpatient (RCR) | payer BC, SELFPAY ==
--- NOTE | 2024-10-13 08:49 | HMH.RHREAS ---
Rehab Reassessment Rehab OP Re-assessment Start: 09/28/24 08:17 Freq: Status: Active Protocol: Document 10/13/24 08:37 KEMAR (Rec: 10/13/24 08:49 [email or web address] [id number]) E-signed By Roshni Peterson, PT Neck Disability Index Neck Disability Index Section 1: Pain Intensity The pain is moderate at the moment Section 2: Personal Care (washing, I can look after myself dressing, etc.) normally but it causes extra pain Section 3: Lifting Pain prevents me from lifting heavy weights, but I can manage light to Section 4: Reading I can read as much as I want with moderate pain in my neck Section 5: Headaches I have no headaches at all Section 6: Concentration I have a fair degree of difficulty in concentrating when I want to Section 7: Work I can only do my usual work, but no more Section 8: Driving I can drive my car as long as I want with moderate pain in my neck Section 9: Sleeping My sleep is midly disturbed (1 -2 hrs sleepless) Section 10: Recreation I am able to engage in most, but not all of my usual recreation NDI Score 17 Rehab Re-assessment Subjective Subjective Pt reports she feels 5% improved since starting PT. 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 Pt reports he neck does feel less stiff overall and has less pain with looking down and looking over her shoulder. Pt reports compliance with HEP. Objective Objective Notes TTP: 2/4 L upper trapezius & levator mm, 1/4 TTP of C4-C6 SP & L TP Cervical AROM: flex 50, ext 45 , RLF 40, LLF 45, Lrot 50, Rrot 55 Assessment Progress Assessment Progressing as Expected Assessment Notes Pt has attended 5 PT treatment sessions consisting of aerobic exercise, cervical mobility, cervical/scapular strengthening, postural reeducation, manual therapy and modalities with good tolerance. Pt demonstrated improved NDI score, cervical AROM and subjective report of pain at worst this date compared to the initial evaluation. 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 Overall, the pt would continue to benefit from skilled PT to further improve subjective report of pain, cervical ROM, cervical/ scapular strength and functional/occupational activity tolerance to improve overall QOL. Patient goals met ST/4 Goals Not Met LTG Revised Goals n/a Plan Plan Continue initial POC. Focus on L upper trapezius soft tissue work and strengthening to assist with occupation. Frequency of Therapy 2x/week Duration of therapy 4 more weeks Time and Billing Re-Eval Time 10 Re-Eval Billing Units 0 Charge for PT reassessment? No Charge for OT reassessment? No PHYSICIAN CERTIFICATION: I certify the specified therapy services for Marizol Navarro are required, authorized, and reviewed every 30 days.
== END 2024-10-14 23:59 | disposition home or self-care (01) ==
LOC: PT 17:00
PROVIDERS: PCP Physician Assistant; Visit Provider Physician Assistant
DX: M62.838 Other muscle spasm (principal)
CPT/HCPCS: 97014; 97035; 97110; 97140; G0283

== ENCOUNTER 2024-10-27 17:00 | Outpatient (RCR) | payer BC, SELFPAY | END 2024-10-27 23:59 | disposition home or self-care (01) | LOC: PT 17:00 | PROVIDERS: PCP Physician Assistant; Visit Provider Physician Assistant | DX: M62.838 Other muscle spasm (principal) | CPT/HCPCS: 97014; 97110; 97140; G0283 ==

== ENCOUNTER 2024-11-12 16:11 | Outpatient (CLI) | payer BC, SELFPAY ==
--- NOTE | 2024-11-12 16:14 | MM_ITS ---
PROCEDURE INFORMATION: Exam: MG Bilateral Screening 3D Mammography Exam date and time: 11/12/2024 4:17 PM Age: 59 years old Clinical indication: Screening. No family history of breast cancer. TECHNIQUE: Imaging protocol: Bilateral Screening tomosynthesis and 2D mammography including computer-aided detection (CAD) when performed. COMPARISON: 1. MG MM DIG SCREENING MAMM BI W/CAD 01/03/2023 4:09 PM 2. MG MM DIG SCREENING MAMM BI W/CAD 01/05/2020 9:11 AM 3. MG DMSB DIG MAMM-SCREEN VINEET 10/30/2015 2:59 PM 4. MG DMSB DIGITAL MAMM-SCREEN BILATERAL 11/08/2011 3:41 PM FINDINGS: MAMMOGRAPHY: Breast composition: The breasts are heterogeneously dense, which may obscure small masses. Mass: None. Architectural distortion: Stable patchy focal asymmetry and architectural distortion in the left upper outer quadrant posterior 3rd - asymmetry unchanged since 2011 an architectural distortion unchanged since 2019 3D images. Calcifications: No suspicious calcifications. Asymmetric density: None. Skin thickening: None. Axillary adenopathy: None. IMPRESSION: See comments Stable focal asymmetry and architectural distortion in the left upper outer breast, clinical correlation to this quadrant is advised, and if negative clinically, annual screening is recommended. As noted previously, this may be related to a prior best biopsy site - if uncertain, patient can be recalled for additional diagnostic mammography with the skin linear scar marker placed and spot compression views added. ASSESSMENT: BI-RADS Category 2: Benign
== END 2024-11-12 23:59 | disposition home or self-care (01) ==
LOC: RAD 16:12
PROVIDERS: PCP Physician Assistant; Visit Provider Family Medicine
DX: Z12.31 Encounter for screening mammogram for malignant neoplasm of breast (principal)
CPT/HCPCS: 77063; 77067

== ENCOUNTER 2025-05-25 13:19 | Outpatient (CLI) | payer BC, SELFPAY ==
--- NOTE | 2025-05-25 13:24 | XR_ITS ---
FINAL REPORT CLINICAL HISTORY: right knee pain. medial sided knee pain. no surgery FINDINGS: AP, lateral and oblique views of the right knee were obtained. There is no prior exam for comparison. There is no acute osseous abnormality of the right knee. The joint space is preserved. The soft tissues are normal. There is a small joint effusion. IMPRESSION: Small joint effusion without acute osseous abnormality of the right knee. Reviewed, Interpreted and Dictated by Maryse Marquez MD Transcribed by Marli Toure Authenticated and [facility]
--- NOTE | 2025-05-25 13:24 | XR_ITS ---
FINAL REPORT CLINICAL HISTORY: left knee pain. medial sided knee pain COMPARISON: 12/24/2017 FINDINGS: AP, lateral and oblique views of the left knee were obtained. There is no acute osseous abnormality of the left knee. Mild degenerative joint disease. The soft tissues are normal. There is a small joint effusion. IMPRESSION: Mild degenerative change and small joint effusion. No acute osseous abnormality of the left knee. Reviewed, Interpreted and Dictated by Maryse Marquez MD Transcribed by Marli Toure Authenticated and . [facility]
== END 2025-05-25 23:59 | disposition home or self-care (01) ==
LOC: RAD 13:21
PROVIDERS: PCP Family Medicine; Visit Provider Physician Assistant
DX: M17.12 Unilateral primary osteoarthritis, left knee (principal); M25.462 Effusion, left knee; M25.461 Effusion, right knee; M25.561 Pain in right knee
CPT/HCPCS: 73562